=== PATIENT | female | born 1985 | race Caucasian/White ===

== ENCOUNTER → 2019-03-10 15:37 | Outpatient (CLI) | payer OTHER, SELFPAY ==
--- NOTE | 2019-03-10 15:40 | DI.US.S_ITS ---
PROCEDURE: US OB <= 14 WEEKS FETUS INDICATIONS: DATING AND VIABILITY OUTSIDE/PRIOR DATING DATA: Last menstrual period (LMP): 12/23/18. However, this is reportedly uncertain LMP-based estimated date of delivery (KATIE): 09/29/19. First dating scan (date and location): 03/10/19. Estimated date of delivery (KATIE) from first dating scan: 11/03/19. TECHNIQUE: Real-time scanning was performed of the fetus and maternal pelvic organs, with image documentation. Endovaginal scanning was also performed to better visualize the fetus and maternal ovaries. COMPARISON: None. FINDINGS: Embryo: Single living intrauterine fetus is present with a crown-rump length measuring 0.35 cm, 6 weeks and zero days. heart rate measures 93 beats per minute Measurement variability in dating: +/- 4 weeks by LMP, +/- 7 days by mean sac diameter (use before 6 weeks gestation if crown-rump length not able to be measured), +/- 5 days by crown-rump length (up to 8 weeks 6 days gestation), +/- 7 days by crown-rump length (up to 13 weeks 6 days gestation). Maternal organs: Ovaries are are not well-visualized. IMPRESSION: Single living intrauterine fetus with a gestational age measuring 6 weeks and zero days, correlating to an ultrasound KATIE of 11/03/19 which is discordant with the LMP reported above however the LMP is reportedly uncertain. Recommend clinical correlation. bradycardia, technically non-specific. Please correlate with serial beta-hCG values, and if necessary, repeat pelvic ultrasound can be performed. Dictated by: Johnie Foreman M.D. on 03/10/2019 at 16:45 Approved by: Johnie Foreman M.D. on 03/10/2019 at 16:50
== END ==
PROVIDERS: PCP Nutritionist; Visit Provider Obstetrics & Gynecology
DX: Z34.81 Encounter for supervision of other normal pregnancy, first trimester (principal); Z3A.01 Less than 8 weeks gestation of pregnancy
CPT/HCPCS: 76801

== ENCOUNTER → 2019-03-11 16:37 | Outpatient (CLI) | payer OTHER, SELFPAY ==
[2019-03-11 19:33] LABS: HCG Quantitative /Beta subunit 33549 mIU/mL
== END ==
PROVIDERS: Visit Provider Obstetrics & Gynecology
DX: O36.80X0 Pregnancy with inconclusive fetal viability, not applicable or unspecified (principal); Z3A.01 Less than 8 weeks gestation of pregnancy
CPT/HCPCS: 36415; 84702

== ENCOUNTER → 2019-03-13 16:30 | Outpatient (CLI) | payer OTHER, SELFPAY ==
[2019-03-13 18:53] LABS: HCG Quantitative /Beta subunit 32605 mIU/mL
== END ==
PROVIDERS: Visit Provider Obstetrics & Gynecology
DX: O36.80X0 Pregnancy with inconclusive fetal viability, not applicable or unspecified (principal); Z3A.01 Less than 8 weeks gestation of pregnancy
CPT/HCPCS: 36415; 84702

== ENCOUNTER 2019-03-27 06:11 | Day surgery (SDC) | payer OTHER, SELFPAY ==
[2019-03-25 11:49] VITALS: BMI 34.1
--- NOTE | 2019-03-27 | PATH_ITS ---
[facility] Accession Number: [id number] . 01 Material submitted: . product of conception - PRODUCTS OF CONCEPTION . 02 Diagnosis: Products of Conception: Products of conception identified. [facility]/03/30/2019 . 02 Electronically signed: . Keyonna Abarca MD, Pathologist NPI- [id number] . 01 Gross description: . PRODUCTS OF CONCEPTION: Received in formalin are multiple fragments of hemorrhagic spongy tissue measuring 7.0 x 4.0 x 0.6 cm in aggregate. parts are not identified. Maitre D sections are submitted in 2 cassettes. /DM /DM . 02 Pathologist provided ICD-10: O02.1 . 02 CPT . 735511 Performed at: 01 [facility] [address] [id number] MD Mj Moran MD Phone: [phone] Performed at: 02 [facility] [place] [address] [place], [place] [id number] MD Judy Castro MD Phone: [phone]
[2019-03-27 07:05] VITALS: BMI 33.6
[2019-03-27 07:08] VITALS: BP 116/82; PULSE 69; RESP 15; TEMP 36.8; O2SAT 100
[2019-03-27] MEDS: LACTATED RINGERS 1,000 ML 100 ML IV (07:18)
--- NOTE | 2019-03-27 07:42 | PM.PREOP ---
Pre-operative Note Interval Note History & Physical reviewed/Exam performed by Physician: Yes Changes to H&P: No
--- NOTE | 2019-03-27 07:42 | PM.HP.1 ---
History of Present Illness Date Patient Seen: 03/27/19 Time Patient Seen: 07:43 Chief complaint: 17990 SUCTION D&C Narrative: Patient is a 33-year-old 2 para 1 with a missed at 7 weeks Patient History Medical History (Updated 03/27/19 @ 07:43 by Liana Galo MD) GERD (gastroesophageal reflux disease) (Chronic) Hyperlipidemia (Chronic) History of stress fracture (Resolved 2003) Vaginal wall cyst (Resolved 08/12/15) Surgical History (Updated 06/20/18 @ 12:38 by Ivy Hopkins) History of third molar tooth extraction (Resolved 2007) History of vaginal surgery (Resolved 08/12/15) Status post loop electrosurgical excision procedure (LEEP) of cervix (Resolved 2004) Social History household members: spouse Smoking Status: Never smoker Family & Social History Social History: household members spouse Tobacco & Substance use: Smoking Status Never smoker Meds Home Medications Medication Instructions Recorded Confirmed Type cetirizine 10 mg PO Q DAY #0 09/24/12 03/27/19 History 1 tab PO DAILY 03/19/19 03/27/19 History vitamin,calcium,orqoypja-mgfe-tvjbr acid tablet cholecalciferol (vitamin D3) 1,000 400 unit PO DAILY 03/23/19 03/27/19 History unit capsule Allergies Allergy/AdvReac Type Severity Reaction Status Date / Time adhesive [ADHESIVE] Allergy Unknown RASH Verified 03/27/19 07:03 Exam Vital Signs (past 8 hours): - 03/27/19 07:08 Temperature 98.2 F Pulse Rate 69 Respiratory Rate 15 Blood Pressure 116/82 Pulse Oximetry 100 Oxygen Delivery Method Room Air Narrative Exam Narrative: HEENT: [No thyromegaly, no anterior cervical or supraclavicular lymphadenopathy.] Lungs:[Clear to auscultation bilaterally, no wheezes.] Cardiovascular: [Regular rate and rhythm, no murmurs, rubs, or gallops]. Abdomen: [No scars. No hepatosplenomegaly. No masses palpable.] External genitalia: [Normal] Vagina: [Normal] Cervix: [Normal] Bimanual exam: 7 Week size uterus. Mobile. Rectal: [No masses]. Ultrasound: Intrauterine measuring 6 weeks 1 day. No heart motion visualized. Assessment & Plan (1) Missed : Current visit: Yes Status: Acute Assessment & Plan narrative: Assessment: 33-year-old 2 para 1 with a missed at 7 weeks gestation Plan: Suction D&C The risks, benefits, and alternatives to the procedure were explained to the patient. The risks including bleeding, infection, and uterine perforation. She understands these risks and agrees to proceed. A full par Q was held and consent form was signed. Time Spent With Patient Time with patient: less than 15 minutes
--- NOTE | 2019-03-27 07:50 | SUR.OPER ---
Lithotomy on padded OR bed, head on pillow, arms secured on padded arm boards at <90 degrees abduction. Legs secured in padded yellow fins stirrups.
[2019-03-27 08:10] VITALS: BP 106/72; PULSE 71; RESP 16; TEMP 36.7; O2SAT 97
--- NOTE | 2019-03-27 08:11 | PM.GYNOP.1 ---
Operative Date/Time/Diagnoses Date of procedure: 03/27/19 Time of procedure: 08:11 Pre-op diagnosis: Missed AB at 7 weeks gestation Post-op diagnosis: same Procedure: Procedures Operation Date: 03/27/19 13:30 Actual Procedures Side Surgeon p Dilation and Curettage-Suction Liana Galo MD Indications: Missed at 7 weeks gestation Surgeon: Liana Galo Anesthesia Type: General (LMA) Operative Notes Findings: Eight week size anteverted uterus Large amount of products of conception Closure Type: not applicable Specimen(s): other (Products of conception) Estimated blood loss (mL): 100 Blood products transfused: none Procedure in detail: After informed consent was obtained, the patient was taken to the operating room where she was placed in the dorsal supine position. After adequate LMA general anesthesia was achieved, she was placed in the dorsal lithotomy position, and prepped and draped in the usual sterile fashion. A time-out was performed. A bivalve speculum was placed into the vagina and the anterior lip of the cervix grasped with a single-tooth tenaculum. The cervical os was sequentially dilated to the # 9 Hegar dilator. The # 7 curved plastic curette passed easily into the endometrial cavity. Suction was applied. There were a large amount of products of conception. Suction curette was removed. Gentle sharp curettage was performed. Several more passes with suction revealed tissue on the first pass and blood only on the second 2 passes. The instruments were removed from the uterus. The single-tooth tenaculum was removed from the anterior lip of the cervix. The bivalve speculum was removed from the vagina. Sponge, lap, and instrument counts were correct x2. The patient tolerated the procedure well, and was taken to PACU in stable condition. Complications: none Post-operative Condition: stable Disposition: PACU Plan for aftercare: Home after recovery
[2019-03-27 08:15] VITALS: BP 105/72; PULSE 71; RESP 16; O2SAT 96
[2019-03-27 08:20] VITALS: BP 123/85; PULSE 71; RESP 15; O2SAT 100
[2019-03-27 08:25] VITALS: BP 139/77; PULSE 67; RESP 11; TEMP 36.4; O2SAT 100
[2019-03-27] MEDS: OXYCODONE/ACETAMINOPHEN 5/325 TABLET 1 TAB PO (08:39)
[2019-03-27 08:41] VITALS: BP 117/75; PULSE 62; TEMP 36.7; O2SAT 99
== END 2019-03-27 08:51 | disposition home or self-care (01) ==
PROVIDERS: PCP Obstetrics & Gynecology; Visit Provider Obstetrics & Gynecology
PROC: (CPT 58120; principal; 2019-03-27 07:45)
DX: O02.1 Missed abortion (principal); Z3A.01 Less than 8 weeks gestation of pregnancy
CPT/HCPCS: 59820; J1100; J1885; J2250; J2405; J2704; J3010

== ENCOUNTER → 2019-08-17 16:41 | Outpatient (CLI) | payer OTHER, SELFPAY ==
[2019-08-17 18:27] LABS: HCG Quantitative /Beta subunit 265.5 mIU/mL
== END ==
PROVIDERS: PCP Obstetrics & Gynecology; Visit Provider Obstetrics & Gynecology
DX: N91.2 Amenorrhea, unspecified (principal)
CPT/HCPCS: 36415; 84702

== ENCOUNTER → 2019-08-20 09:08 | Outpatient (CLI) | payer OTHER, SELFPAY ==
[2019-08-20 10:19] LABS: HCG Quantitative /Beta subunit 389.12 mIU/mL
== END ==
PROVIDERS: PCP Obstetrics & Gynecology; Visit Provider Obstetrics & Gynecology
DX: N91.2 Amenorrhea, unspecified (principal)
CPT/HCPCS: 36415; 84702

== ENCOUNTER → 2019-08-24 09:07 | Outpatient (CLI) | payer OTHER, SELFPAY ==
[2019-08-24 10:03] LABS: HCG Quantitative /Beta subunit 402.17 mIU/mL
== END ==
PROVIDERS: PCP Obstetrics & Gynecology; Visit Provider Obstetrics & Gynecology
DX: Z32.01 Encounter for pregnancy test, result positive (principal); E34.9 Endocrine disorder, unspecified
CPT/HCPCS: 36415; 84702

== ENCOUNTER → 2019-08-26 14:34 | Outpatient (CLI) | payer OTHER, SELFPAY ==
[2019-08-26 15:38] LABS: HCG Quantitative /Beta subunit 64.49 mIU/mL
== END ==
PROVIDERS: PCP Obstetrics & Gynecology; Visit Provider Obstetrics & Gynecology
DX: O20.9 Hemorrhage in early pregnancy, unspecified (principal)
CPT/HCPCS: 36415; 84702

== ENCOUNTER → 2022-03-16 11:01 | Outpatient (CLI) | payer BC, SELFPAY ==
--- NOTE | 2022-03-16 11:02 | DI.US.S_ITS ---
PROCEDURE: US PELVIC COMPLETE INDICATIONS: Left sided Pelvic/Ovarian Pain, AUB w/IUD TECHNIQUE: Real-time scanning was performed of the pelvic organs, with image documentation. Additional endovaginal scanning was necessary due to incomplete visualization of the adnexal and endometrial structures by transabdominal scanning. COMPARISON: [facility], , PELVIC COMPLETE, 10/20/2019, 8:58. [facility], , PELVIC COMPLETE, 11/09/2020, 9:46. FINDINGS: Uterus: Uterus is normal in size at 8.4 x 4.2 x 5.4 cm. The endometrium measures 4 mm combined thickness. The IUD is seen at its expected location. Ovaries: The right ovary measures 4.3 x 3.2 x 3.9 cm. The right ovary demonstrates a simple appearing cyst that measures 3.2 x 2.4 x 2.7 cm. A normal appearing waveform is confirmed to the right ovary. The left ovary measures 3.3 x 2.8 x 3.1 cm. The left ovary demonstrates a simple appearing cyst that measures up to 2.3 cm, which is considered to be within physiologic limits. No adnexal masses are seen. Other: No pathologic free abdominal or pelvic fluid. IMPRESSION: Bilateral ovarian cysts are seen, including a 3.2 cm right ovarian cyst. In a patient of this age, this is almost certainly benign. If it would be clinically appropriate, a followup pelvic ultrasound could be considered in 6 weeks to assure resolution/ improvement. We strive to produce accurate, complete, and clear reports of imaging services. To assist us in improving patient care, this report was composed using standard report templates and voice recognition software. Therefore, it may contain abnormal punctuation, insertions and/or omissions. Occasional wrong-word or sound-alike substitutions may occur. Though we review the report and make efforts to correct it, we do recommend that the report be read carefully in proper context to recognize any text inaccuracies. Dictated by: Luis Alberto Maldonado M.D. on 03/16/2022 at 10:50 Approved by: Luis Alberto Maldonado M.D. on 03/16/2022 at 10:54
== END ==
PROVIDERS: PCP Nurse Practitioner Acute Care; Referring Provider Obstetrics & Gynecology; Visit Provider Obstetrics & Gynecology
DX: Z97.5 Presence of (intrauterine) contraceptive device (principal); R10.2 Pelvic and perineal pain; Z87.42 Personal history of other diseases of the female genital tract; N83.202 Unspecified ovarian cyst, left side; N83.201 Unspecified ovarian cyst, right side
CPT/HCPCS: 76830; 76856

== ENCOUNTER 2022-06-11 09:39 | Day surgery (SDC) | payer OTHER, SELFPAY ==
[2022-06-05 08:09] VITALS: BMI 34.3
[2022-06-11] VITALS (7 sets, daily range): BP systolic 108–128; BP diastolic 68–90; PULSE 60–101; RESP 15–20; TEMP 36.2–36.9; O2SAT 97–100; BMI 34.3
--- NOTE | 2022-06-11 | PATH_ITS ---
[facility] Accession Number: [id number] No. of containers..01 Tissue . 01 Material submitted: . fallopian tube - BILATERAL FALLOPIAN TUBES AND BILATERAL OVARIES . 01 Diagnosis: Bilateral Fallopian Tubes and Bilateral Ovaries, Bilateral Salpingo-oophorectomy: Longer fallopian tube with benign paratubal cysts (up to 3 mm in greatest dimension; completel cross sections, negative for atypia or malignancy. Ovary associated with longer fallopian tube with multiple benign serous cysts and cystic follicles occupying approximately 60% of the ovarian parenchyma. Duarte fallopian tube, complete cross-sections; negative for atypia or malignancy. Ovary associated with shorter fallopian tube with multiple benign serous cysts, cystic follicles, and scattered inclusion cysts (up to 9 mm in greatest dimension); occupying approximately 40% of the ovarian parenchyma. [facility] 06/15/2022 1443 Local . 01 Electronically signed: . Keyonna Abarca MD, Pathologist NPI- [id number] . 01 Gross description: . Received in formalin labeled with the patient's name and bilateral fallopian tubes and ovaries and consists of two unoriented fimbriated fallopian tubes with attached ovaries. The longer fallopian tube measures 5.5 cm in length and 0.9 cm in diameter with smooth congested serosa and multiple cystic structures measuring up to 0.3 cm in greatest dimension. Serial sectioning reveals an unremarkable stellate lumen. The associated ovary is muir and relatively smooth weighing 12 grams and measuring 3.7 x 2.6 x 2.2 cm. Several cystic structures are identified on the external surface filled with clear serous fluid and measuring up to 0.3 cm in greatest dimension. Serial sectioning reveals multiple thin, smooth-walled cystic structures measuring up to 1.2 cm in greatest dimension filled with clear serous fluid. The intervening parenchyma is pink to white with no normal physiologic ovary identified. . The shorter fallopian tube measures 5.0 cm in length and 0.7 cm in diameter with a dusky smooth serosa and no cystic structures identified. Serial sectioning reveals an unremarkable stellate lumen. The associated ovary is muir and relatively smooth and multiple cystic structures visible on the surface measuring up to 0.4 cm in greatest dimension containing muir serous fluid. Sectioning reveals multiple thin, smooth-walled cystic structures measuring up to 0.9 cm in greatest dimension, and the intervening parenchyma is pink to muir with no follicles identified. [employer] sections are submitted as follows: . A1: Longer fallopian tube to include entire fimbria and outbound telemarketing representative cross sections. A2: [employer] ovary associated with longer fallopian tube. A3: Duarte fallopian tube to include entire fimbria and outbound telemarketing representative cross section. A4: [employer] ovary associated with shorter fallopian tube. ([id number]) /[facility] 06/12/2022 1622 Local . 01 Pathologist provided ICD-10: N83.209, R10.2 . 01 CPT . 463186 Specimen Comment: A courtesy copy of this report has been sent to [phone] Performed at: 01 [facility] [address] [place] [address], [place], [place] [id number] MD Mj Moran MD Phone: [phone]
[2022-06-11 10:22] LABS: COVID19 -Nasal RAPID Negative (Negative)
[2022-06-11] MEDS: LACTATED RINGERS 1,000 ML 42 ML IV (10:34)
--- NOTE | 2022-06-11 12:24 | SUR.OPER ---
Lithotomy on padded OR bed, head on pillow, arms secured on padded arm boards at <90 degrees abduction. Legs secured in padded yellow fins stirrups. both arms padded and tucked at sides during case
--- NOTE | 2022-06-11 12:38 | P.HP_ITS ---
History of Present Illness History of Present Illness Date Patient Seen: 06/11/22 Time Patient Seen: 12:38 Chief complaint: LAP JOELLE SALPINGO-OOPHORECTOMY Narrative: Patient is a 37-year-old 2 para 1 who presents for a laparoscopic removal of both tubes and ovaries due to recurrent ovarian cysts. Patient History Medical History (Updated 05/15/22 @ 06:09 by Liana Galo MD) GERD (gastroesophageal reflux disease) History of stress fracture (2003) Hyperlipidemia Vaginal wall cyst (08/12/15) Surgical History (Updated 04/13/19 @ 15:20 by Kerrie Nye MA) History of third molar tooth extraction (2007) History of vaginal surgery (08/12/15) S/P D&C (status post dilation and curettage) (03/27/19) Status post loop electrosurgical excision procedure (LEEP) of cervix (2004) Family & Social History Social History: household members spouse,children Tobacco & Substance use: Smoking Status Never smoker alcohol intake frequency holiday/special occasion Substance Use Type does not use Meds Home Medications and Allergies Home Medications Medication Instructions Recorded Confirmed Type cholecalciferol (vitamin D3) 25 400 unit PO DAILY 03/23/19 06/11/22 History mcg (1,000 unit) capsule fexofenadine 60 mg tablet 60 mg PO BID 06/11/22 06/11/22 History Allergies Allergy/AdvReac Type Severity Reaction Status Date / Time adhesive [ADHESIVE] Allergy Unknown RASH Verified 05/01/22 15:20 Exam Vital Signs (past 8 hours): - 06/11/22 10:13 Temperature 97.6 F Pulse Rate 66 Respiratory Rate 20 Blood Pressure 128/90 Pulse Oximetry 100 Oxygen Delivery Method Room Air Oxygen Delivery Method Room Air Narrative Exam Narrative: HEENT: No thyromegaly, no anterior cervical or supraclavicular lymphadenopathy. Lungs:Clear to auscultation bilaterally, no wheezes. Cardiovascular: Regular rate and rhythm, no murmurs, rubs, or gallops. Abdomen: No scars. No hepatosplenomegaly. No masses palpable. External genitalia: Normal Vagina: Normal Cervix: Normal, parous Bimanual exam: 7 Week size anteverted uterus. Mobile. Bilateral adnexal tenderness. Extremities: No edema Objective Labs Labs: Laboratory Results - last 24 hr 06/11/22 10:00 SARS-CoV-2 (PCR) Negative Assessment & Plan Assessment & Plan narrative: Assessment: 37-year-old 2 para 1 with recurrent ovarian cysts, desires removal of both tubes and ovaries Plan: Laparoscopic BSO The risks, benefits, and alternatives to the procedure were explained to the p atient. The risks including bleeding, infection, injury to the bowel, bladder, or ureters. She understands these risks and agrees to proceed. A full par Q was held and consent form was signed. Patient understands that she will need to go on estrogen replacement therapy after the surgery. COVID-19 COVID-19 status: Negative Result date/Date tested (Pos, Neg/Pending): 06/11/22 Time Spent With Patient Time with patient: less than 30 minutes Critical Care time: I spent a total of [] minutes of critical care time on this patient's care today; this time is exclusive of procedural time.
--- NOTE | 2022-06-11 12:41 | PM.PREOP ---
Pre-operative Note COVID-19 COVID-19 status: Negative Result date/Date tested (Pos, Neg/Pending): 06/11/22 Criteria for continued procedure: Non-surgical alternatives not available or appropriate per current SOC Interval Note History & Physical reviewed/Exam performed by Physician: Yes Changes to H&P: No H&P completed within 30 days and has changed as indicated here:: 06/11/22
[2022-06-11] MEDS: CEFAZOLIN 2 GM/100 ML PREMIX 100 ML IV (13:10)
[2022-06-11] MEDS: BUPIVACAINE 0.5% W/ EPI (PF) 30 ML VIAL INJ (13:31)
--- NOTE | 2022-06-11 14:10 | P.OP_ITS ---
Operative Date/Time/Diagnoses Date of procedure: 06/11/22 Time of procedure: 14:10 Pre-op diagnosis: Recurrent ovarian cysts Post-op diagnosis: same Procedure & Clinicians Procedure: Procedures Operation Date: 06/11/22 11:45 Actual Procedure Side Surgeon p Laparoscopic Salpingo-oophorectomy Bilateral Liana Galo MD Indications: Recurrent ovarian cysts Surgeon: Liana Galo Anesthesia Type: General and Local Operative Notes Findings: 7 week size anteverted uterus Normal appendix, gallbladder, and liver Normal tubes bilaterally Enlarged ovaries bilaterally Closure Type: primary Specimen(s): left tube & ovary and right tube & ovary Estimated blood loss (mL): 10 Procedure in detail: Informed consent was obtained. The patient was taken to the operating room where she was placed in the dorsal supine position. After adequate general endotracheal anesthesia was achieved, she was placed in the dorsal lithotomy position, and prepped and draped in the usual sterile fashion. A bivalve speculum was placed into the vagina and the anterior lip of the cervix was grasped with a single-tooth tenaculum. The cervical os was sequentially dilated until the Zumi uterine manipulator could pass easily into the endometrial cavity. The single-tooth tenaculum was removed from the anterior lip of the cervix. The bivalve speculum was removed from the vagina. Attention was turned to the abdomen where 6 cc of 0.5% Marcaine with epinephrine were injected in the umbilical fold. A 5 mm incision was made. The Veress needle was placed into the peritoneal cavity, and its placement confirmed by aspiration and drop test. The abdominal cavity was insufflated with 3.4 L of CO2. The Veress needle was removed, and a 5 mm trocar was placed without difficulty. Two other incisions were made 4 cm lateral to the midline after 6 cc of 0.5% Marcaine with epinephrine were injected. Two 5 mm incisions were made. Two 5 mm trocars were placed under direct visualization. The right tube and ovary were grasped with an atraumatic grasper. The infundibulopelvic ligament on the right side was cauterized and cut with the power seal. This was continued down the mesosalpinx all the way to the cornua of the uterus. The tube was amputated at the cornua with the power seal. All of this was repeated on the patient's left side. 6 cc of 0.5% Marcaine with epinephrine were injected above the pubic symphysis. A 12 mm incision was made. A 12 mm trocar was placed without difficulty. An endobag was placed through the suprapubic trocar. Both tubes and ovaries were placed into the endobag. The trocar was removed. The endobag was pulled up through the suprapubic incision. The fascia was reapproximated on the suprapubic incision using 0 Vicryl. Two simple interrupted sutures were placed in the subcutaneous layer to reapproximate. The CO2 was allowed to escape. The instruments and trocars were removed from the abdomen. The superficial incisions were repaired with 4-0 Monocryl in a subcuticular fashion. Steri- Strips and Allevyn dressings were placed. Sponge, lap, and instrument counts were correct x2. Patient tolerated the procedure well, and was taken to PACU in stable condition. Complications: none Post-operative Condition: stable Disposition: PACU Plan for aftercare: Home after recovery
[2022-06-11] MEDS: OXYCODONE/ACETAMINOPHEN 5/325 TABLET 1 TAB PO (14:37)
== END 2022-06-11 15:18 | disposition home or self-care (01) ==
PROVIDERS: PCP Nurse Practitioner Acute Care; Referring Provider Obstetrics & Gynecology; Visit Provider Obstetrics & Gynecology
PROC: 0UT24ZZ Resection of Bilateral Ovaries, Percutaneous Endoscopic Approach (ICD-10-PCS; CPT 58661; principal; 2022-06-11 11:45)
DX: N83.202 Unspecified ovarian cyst, left side (principal); N83.201 Unspecified ovarian cyst, right side; Z20.822 Contact with and (suspected) exposure to COVID-19; N83.8 Other noninflammatory disorders of ovary, fallopian tube and broad ligament; N83.299 Other ovarian cyst, unspecified side
CPT/HCPCS: 58661; 81025; 87635; C9803; J0690; J2250; J3010

== ENCOUNTER → 2022-07-19 15:25 | Outpatient (CLI) | payer OTHER, SELFPAY ==
[2022-07-19 18:10] LABS: Add Manual Diff / Slide Review NO; Basophils Absolute Auto 0 /uL (0-100); Basophils Percent Auto 0.3 % (0-2); Eosinophils Absolute Auto 100 /uL (0-450); Eosinophils Percent Auto 1.9 % (2-4); Hematocrit 40.4 % (36-46); Hemoglobin 13.6 g/dL (12.0-16.0); Lymphocytes Absolute Auto 2800 /uL (1100-4500); Mean Corpuscular HGB Conc 33.8 % (30-36); Mean Corpuscular Hemoglobin 30.2 PG (26-34); Mean Corpuscular Volume 89.5 fL (80-100); Monocytes Absolute Auto 400 /uL (0-900); Monocytes Percent Auto 6.2 % (3-14); Neutrophils Absolute Auto 3900 /uL (1500-7000); Neutrophils Percent Auto 53.6 % (50-75); Platelet Count 236 X10^3/uL (150-400); Red Blood Cell Count 4.51 X10^6/uL (4.0-5.2); Red Cell Distribution Width 12.5 % (11.6-14.8); White Blood Cell Count 7.3 X10^3/uL (4.5-11.0)
[2022-07-19 19:14] LABS: Estradiol, Total 47.3 pg/mL
== END ==
PROVIDERS: PCP Nurse Practitioner Acute Care; Referring Provider Obstetrics & Gynecology; Visit Provider Obstetrics & Gynecology
DX: R61 Generalized hyperhidrosis (principal)
CPT/HCPCS: 36415; 82670; 85025

== ENCOUNTER → 2022-08-22 14:52 | Outpatient (CLI) | payer OTHER, SELFPAY ==
[2022-08-22 16:45] LABS: Hematocrit 38.6 % (36-46); Mean Corpuscular HGB Conc 33.8 % (30-36); Mean Corpuscular Hemoglobin 30.1 PG (26-34); Platelet Count 235 X10^3/uL (150-400); Red Blood Cell Count 4.33 X10^6/uL (4.0-5.2); Red Cell Distribution Width 12.5 % (11.6-14.8); White Blood Cell Count 6.4 X10^3/uL (4.5-11.0)
[2022-08-22 17:22] LABS: Free T4, Direct Thyroxine 1.04 ng/dL (0.78-2.19)
[2022-08-22 17:28] LABS: Estradiol, Total 104.6 pg/mL
[2022-08-22 17:37] LABS: Thyroid Stimulating Hormone 0.113 uIU/mL (0.47-4.68)
== END ==
PROVIDERS: PCP Nurse Practitioner Acute Care; Referring Provider Obstetrics & Gynecology; Visit Provider Obstetrics & Gynecology
DX: R61 Generalized hyperhidrosis (principal)
CPT/HCPCS: 36415; 82670; 84439; 84443; 85027

== ENCOUNTER → 2022-10-19 12:09 | Outpatient (CLI) | payer OTHER, SELFPAY ==
[2022-10-19 14:40] LABS: Thyroid Stimulating Hormone 0.097 uIU/mL (0.47-4.68)
[2022-10-19 17:45] LABS: Estradiol, Total 146.8 pg/mL
[2022-10-25 10:07] LABS: Free T4, Direct Thyroxine 1.01 ng/dL (0.78-2.19)
== END ==
PROVIDERS: PCP Nurse Practitioner Acute Care; Referring Provider Obstetrics & Gynecology; Visit Provider Obstetrics & Gynecology
DX: R61 Generalized hyperhidrosis (principal); R23.2 Flushing
CPT/HCPCS: 36415; 82670; 83001; 84439; 84443

== ENCOUNTER → 2022-12-31 15:38 | Outpatient (CLI) | payer OTHER, SELFPAY ==
[2022-12-31 16:58] LABS: Free T4, Direct Thyroxine 0.97 ng/dL (0.78-2.19)
[2022-12-31 17:12] LABS: Thyroid Stimulating Hormone 2.49 uIU/mL (0.47-4.68)
[2022-12-31 17:51] LABS: Estradiol, Total 41.5 pg/mL
== END ==
PROVIDERS: PCP Nurse Practitioner Acute Care; Referring Provider Obstetrics & Gynecology; Visit Provider Obstetrics & Gynecology
DX: R23.2 Flushing (principal); R63.5 Abnormal weight gain
CPT/HCPCS: 36415; 82670; 84439; 84443

== ENCOUNTER → 2023-02-12 16:20 | Outpatient (CLI) | payer OTHER, SELFPAY ==
[2023-02-14 13:19] LABS: Free T4, Direct Thyroxine 0.97 ng/dL (0.78-2.19)
[2023-02-20 22:58] LABS: Estrogen 189 pg/mL (.)
== END ==
PROVIDERS: PCP Nurse Practitioner Primary Care; Referring Provider Obstetrics & Gynecology; Visit Provider Obstetrics & Gynecology
DX: R23.2 Flushing (principal)
CPT/HCPCS: 36415; 82672; 84439; 84443